=== PATIENT | female | born 1995 | race Asian ===

== ENCOUNTER → 2017-07-18 00:12 | Emergency (ER) | payer OTHER ==
--- NOTE | 2017-07-18 02:57 | ED ---
Thad Sarkar Rebecca, scribed for Tacho Sears MD on 07/18/17 at 0023 . Substance Abuse/Use - HPI Summary HPI Summary: Pt is a 21 y/o F BIBA who comes to ED p/w EtOH intoxication and N/V. Per EMS, they were called by her friends and reported that she drank "a lot." Level 5 caveat due to EtOH intoxication. - History Of Current Complaint Stated Complaint: ALCOHOL CONSUMPTION Hx Obtained From: EMS Hx From Patient Unobtainable Due To: Other - EtOH intoxication Ingestion History: Type/Name Of Drug - EtOH, Amount Ingested - "a lot" Overdose Characteristics: Oral Associated Signs And Symptoms: Nausea, Vomiting - Allergies/Home Medications Allergies/Adverse Reactions: Allergies Allergy/AdvReac Type Severity Reaction Status Date / Time Unable to Obtain Allergy Verified 07/18/17 01:49 PMH/Surg Hx/FS Hx/Imm Hx Previously Healthy: No - Level 5 caveat due to EtOH intoxication Neurological History: Reports: Other Neuro Impairments/Disorders - Hx narcolepsy - Family History Known Family History: Positive: Unknown - Level 5 caveat due to EtOH intoxication - Social History Occupation: Student - [employer] Alcohol Use: Presents with EtOH intoxication Review of Systems - ROS Summary Review of Systems Summary: Level 5 caveat due to EtOH intoxication. Positive: Vomiting, Nausea Positive: Other - EtOH intoxication All Other Systems Reviewed And Are Negative: No Physical Exam Triage Information Reviewed: Yes Vital Signs Reviewed: Yes Appearance: Positive: Well-Appearing, No Pain Distress - aob Skin: Positive: Warm Head/Face: Positive: Normal Head/Face Inspection Eyes: Positive: PABLO ENT: Positive: Hearing grossly normal Neck: Positive: Supple Respiratory/Lung Sounds: Positive: Clear to Auscultation, Breath Sounds Present Cardiovascular: Positive: RRR Abdomen Description: Positive: Nontender, Soft Bowel Sounds: Positive: Present Musculoskeletal: Positive: Strength/ROM Intact Neurological: Positive: Alert, Oriented to Person Place, Time Psychiatric: Positive: Affect/Mood Appropriate Course/Dx - Course Assessment/Plan: Pt is a 21 y/o F BIBA who comes to ED p/w EtOH intoxication and N/V. Per EMS, they were called by her friends and reported that she drank " a lot.". Level 5 caveat due to EtOH intoxication. Serum alcohol of 253. Pt will be D/C to home with a Dx of alcohol intoxication and a follow up with her PCP. Elevated BP noted and advised to f/u with PCP. - Diagnoses Provider Diagnoses: Alcohol intoxication Discharge - Discharge Plan Condition: Stable Disposition: HOME Patient Education Materials: Alcohol Intoxication (ED) Referrals: [facility] [Primary Care Provider] - 3 Days Additional Instructions: Return to the ED for any returning or worsening symptoms. The documentation as recorded by the Thad briceño Rebecca accurately reflects the service I personally performed and the decisions made by me, Tacho Sears MD.
[2017-07-18 07:22] VITALS: BP 117/62
== END | disposition home or self-care (01) ==
LOC: ED 00:12 → EDBD 00:12
DX: F10.129 Alcohol abuse with intoxication, unspecified (principal)
CPT/HCPCS: 36415; 80320; 99282; G0480